=== PATIENT | male | born 1965 | race Caucasian/White ===

== ENCOUNTER 2020-06-18 13:34 | Outpatient (REF) | payer OTHER, SELFPAY ==
--- NOTE | ~2020-06-18 | XR_ITS ---
EXAMINATION: XR CHEST CLINICAL INFORMATION: Chest wall pain COMPARISON: Chest and left RIBS 05/20/2018 TECHNIQUE: 2 views of the chest were obtained. FINDINGS: The lungs are well-expanded and clear of acute pneumonic process. There is blunting of left CP angle from pleural thickening and underlying atelectasis. Heart size and pulmonary vascularity is normal. No gross bony abnormality seen. XR/XR chest 2V IMPRESSION: Left pleural effusion with underlying atelectasis. Rest of the lungs are clear.
[2020-06-18 14:19] LABS: MANUAL DIFF FLAG NO
[2020-06-18 14:25] LABS: Basophils Percent Auto 0.6 % (0-2); Eosinophils Absolute Auto 0.1 X10*3/uL (0.0-0.4); Eosinophils Percent Auto 1.2 % (0-4); Hematocrit 40.5 % (42-52); Hemoglobin 13.5 g/dl (14.0-18.0); Imm Gran Abs Auto 0.02 X10*3/uL (0.00-0.03); Imm Gran Pct Auto 0.3 % (0.0-0.4); Lymphocytes Percent Auto 14.1 % (20-40); Mean Corpuscular HGB Conc 33.3 g/dl (31.0-36.0); Mean Corpuscular Hemoglobin 31.5 pg (27.0-33.0); Mean Corpuscular Volume 94.6 fL (80-98); Mean Platelet Volume 8.9 fL (9.4-12.4); Monocytes Absolute Auto 0.8 X10*3/uL (0.1-1.2); Monocytes Percent Auto 11.7 % (2-11); Neutrophils Absolute Auto 4.9 X10*3/uL (2.0-8.3); Neutrophils Percent Auto 72.1 % (45-73); Platelet Count 200 X10*3/uL (160-400); Red Blood Count 4.28 X10*6/uL (4.60-5.80); Red Cell Distribution Width 13.2 % (11.0-16.0); White Blood Count 6.8 X10*3/uL (4.8-10.8)
[2020-06-18 15:00] LABS: Alanine Aminotransferase 16 U/L (0-40); Albumin Level 4.2 g/dL (3.5-5.0); Alkaline Phosphatase 62 U/L (39-117); Anion Gap 14 (12-20); Aspartate Amino Transferase 14 U/L (5-37); Bilirubin Total 1.2 mg/dL (0.0-1.0); Blood Urea Nitrogen 10 mg/dL (9-16); C Reactive Protein 10.33 mg/dL (< or = 0.50); Calcium 9.1 mg/dL (8.4-10.2); Carbon Dioxide 26 mmol/L (22-29); Chloride 106 mmol/L (96-108); Estimated Glomerular Filt Rate > 60; Glucose Random 82 mg/dL (60-115); Potassium 4.2 mmol/L (3.3-5.1); Sodium 142 mmol/L (135-145); Total Protein 6.6 g/dL (6.5-8.0)
== END 2020-06-18 13:35 | disposition home or self-care (01) ==
LOC: HO.LAB 13:34
PROVIDERS: PCP Internal Medicine; Visit Provider Internal Medicine
DX: R07.89 Other chest pain (principal)
CPT/HCPCS: 36415; 71046; 80053; 82550; 85025; 86140

== ENCOUNTER 2020-06-18 17:33 | Emergency (ER) | payer OTHER, SELFPAY ==
--- NOTE | ~2020-06-18 | CT_ITS ---
EXAMINATION: CT ABDOMEN AND PELVIS WITHOUT CONTRAST CLINICAL INFORMATION: Left upper quadrant pain COMPARISON: 09/09/2015 report only TECHNIQUE: Multidetector volumetric imaging was performed from the superior aspect of the liver through the pubic symphysis. Sagittal and coronal reformatted images were obtained on the technologist's workstation. This CT examination was performed using dose optimization techniques as appropriate, variously including the following: *Automated exposure control *Adjustment of mA and/or kV according to patient size (this includes techniques or standardized protocols for targeted exams where dose is matched to indication/reason for exam; i.e. extremities or head) *Use of iterative reconstruction technique DLP: 652 mGy-cm FINDINGS: LUNG BASES: Patchy consolidations of the left lung with trace effusion and lung parenchymal calcifications suggesting long-term consolidation. LIVER, GALLBLADDER, AND BILIARY TREE: The liver is normal in size, shape, and attenuation. Few scattered liver cysts. Additional tiny hypodensities are too small to characterize but statistically most likely represent additional small cysts. The liver is normal in size, attenuation and Contour otherwise. No biliary ductal dilatation is present. The gallbladder is unremarkable with no evidence of radiopaque gallstones, gallbladder wall thickening, or obvious pericholecystic inflammatory changes. PANCREAS: Unremarkable. SPLEEN: Unremarkable. ADRENAL GLANDS: Unremarkable. KIDNEYS AND URETERS: The kidneys are normal in size, shape, and attenuation. No hydronephrosis, hydroureter, or calculi seen. No perinephric stranding. BLADDER: Unremarkable. GASTROINTESTINAL TRACT: Diverticulosis without CT evidence of diverticulitis. The appendix is unremarkable. No evidence of bowel obstruction. ABDOMINAL WALL: No significant abdominal wall hernia. LYMPH NODES: No lymphadenopathy within the abdomen or pelvis by CT criteria. VASCULAR: No abdominal aortic aneurysm. The IVC is singular and right-sided. PELVIC VISCERA: Unremarkable. OSSEOUS STRUCTURES: No acute or suspicious osseous abnormality. CT/CT abdomen pelvis wo con IMPRESSION: 1. No acute abnormality within the abdomen or pelvis. 2. Diverticulosis without CT evidence of diverticulitis. 3. Chronic appearing consolidation of the left lower lobe adjacent to the trace pleural effusion. There are also patchy airspace opacities of the partially imaged left lung base and inferior most aspect of the lingula. The clinical significance of these patchy opacities is unknown and whether they represent an acute on chronic process should be considered.
[2020-06-18 17:40] VITALS: BP 144/81; PULSE 81; RESP 12; TEMP 35.5; O2SAT 96; BMI 26.2
--- NOTE | 2020-06-18 18:31 | ECG_ITS ---
Test Reason : ABNORMAL LAB Blood Pressure : / mmHG Vent. Rate : 071 BPM Atrial Rate : 071 BPM P-R Int : 156 ms QRS Dur : 094 ms QT Int : 386 ms P-R-T Axes : 053 022 028 degrees QTc Int : 419 ms Normal sinus rhythm Normal ECG No previous ECGs available Referred By: Anna Reis Electronically Signed By:SUGAR ESTRELLA
--- NOTE | 2020-06-18 19:05 | PC.NURSE ---
ASSUMED CARE OF PT. PT RESTING IN STRETCHER JUST RETURNING FROM CT. LABS DRAWN AT THIS TIME. EKG OBTAINED. PT ALERT, RESPIRATIONS EASY, N/L. PT REQUESTING TO GO HOME AFTER PENDING LABS.
[2020-06-18 19:39] LABS: Troponin-I High Sensitivity < 3.5 ng/L (<3.5-35.0)
--- NOTE | 2020-06-18 20:12 | ED.GENADULT ---
HPI - General Adult General Chief complaint: General Medical Stated complaint: Abd Pain Time Seen by Provider: 06/18/20 18:06 Source: patient Mode of arrival: ambulatory Limitations: no limitations History of Present Illness HPI narrative: Patient comes emergency room complaining left-sided chest pain. Patient states it has been going on for 3 days. Patient states it started after a workout at the gym. Patient states throughout the last few days the pain has been getting worse, hurts more in supine position or lying on the left side. Patient does not recall any trauma to that area. Patient states that he does not have chest pain, no shortness of breath. Earlier today, patient was seen by Dr. Gill, his PCP, a chest x-ray was done which seemed abnormal. Patient was asked to come to the emergency room for further evaluation. Patient denies cough, no vomiting or diarrhea, no abdominal pain, no fever chills. Related Data Previous Rx's Medication Instructions Recorded azithromycin 250 mg PO DAILY 4 Days #4 tab 06/18/20 tramadol 50 mg PO TID PRN #10 tab 06/18/20 Allergies Allergy/AdvReac Type Severity Reaction Status Date / Time No Known Allergies Allergy Unverified 10/30/19 14:45 [No Known Allergies*] Review of Systems Review of Systems: Constitutional : No Weight loss, No Fever, No Chills, No Night Sweats, No Fatigue, No Malaise ENT/Mouth : No Hearing loss, No Ear Pain, No Nasal Congestion, No Sinus Pain, No Hoarseness, No sore throat, No Rhinorrhea, No Swallowing Difficulty Eyes: No Eye Pain, No Swelling, No Redness, No Foreign Body, No Discharge, No Vision Changes Cardiovascular : Complaining of left-sided intermittent Chest/flank Pain, No SOB, No Dyspnea on Exertion, No Orthopnea, No Edema, No Palpitations Respiratory : No Cough, No Sputum, No Wheezing, No Smoke Exposure, No Dyspnea Gastrointestinal : No Nausea, No Vomiting, No Diarrhea, No Constipation, mild left upper quadrant discomfort, no dyspepsia, No Hematochezia, No Melena Genitourinary : no irregular bleeding, No Dysuria, No Urinary Frequency, No Hematuria, No Urinary Incontinence, No Urgency, No Flank Pain, No Urinary Flow Changes, No Hesitancy Musculoskeletal : No joint pain, No Myalgias, No Joint Swelling Skin : No Skin Lesions, No rash Neuro : No Weakness, No Numbness, No Paresthesias, No Loss of Consciousness, No Dizziness, No Headache Psych : No Anxiety/Panic, No Depression, No SI/HI/AH/VH, No Social Issues, Heme/Lymph: No Bruising, No Bleeding,No Lymphadenopathy Endocrine : No Polyuria, No Polydipsia, No Temperature Intolerance [facility] Social History Social History Alcohol intake: never Smoking Status: Never smoker Use of substances other than those prescribed or required for medical reasons: No Advance Directives: No Advance Directives Information Provided: Yes Physical Exam Vital Signs: Vital Signs: Last Vital Signs Temp 96 F L 06/18/20 17:40 Pulse 81 06/18/20 17:40 Resp 12 06/18/20 17:40 BP 144/81 H 06/18/20 17:40 Pulse Ox 96 06/18/20 17:40 Body Mass Index 26.2 Appearance: Alert. Oriented X3. No acute distress. Eyes: Pupils equal, round and reactive to light. ENT: Pharynx normal. Neck: Normal inspection. Neck supple. No lymph nodes noted. No crepitus CVS: Normal heart rate and rhythm. Pulses normal. Normal S1 and S2, reproducible chest pain with supine position Respiratory: No respiratory distress. Breath sounds normal. No Wheezing. No rales Abdomen: Soft and nontender. No rigidity. No distention. good BS x4 Skin: Skin warm and dry. Normal skin color. Normal skin turgor. Extremities: No lower extremity edema. No lower extremity edema. No Lacerations. No Rash Neuro: Oriented X 3. No motor deficit. No sensory deficit. Moving all extermities. No slurred speech. Course Course Course Narrative: I discussed the CT scan findings with the patient, I also spoke with Dr. Gill. Patient has a a chronic appearing consolidation of the left lower lobe, also has trace pleural effusion. There are also patchy airspace opacities in the left lung. At this time, patient feels otherwise well, no shortness of breath, oxygen saturation 98% on room air. Patient will be discharged home with antibiotics and pain medication. Patient will follow-up with Dr. Gill on Sunday. Medical Decision Making Lab Data Labs: Lab Results 06/18/20 Range/Units 18:57 Troponin I High Sens < 3.5 (<3.5-35.0) ng/L Imaging Data CT abdomen: Radiologist's impression: FINDINGS: LUNG BASES: Patchy consolidations of the left lung with trace effusion and lung parenchymal calcifications suggesting long-term consolidation. LIVER, GALLBLADDER, AND BILIARY TREE: The liver is normal in size, shape, and attenuation. Few scattered liver cysts. Additional tiny hypodensities are too small to characterize but statistically most likely represent additional small cysts. The liver is normal in size, attenuation and Contour otherwise. No biliary ductal dilatation is present. The gallbladder is unremarkable with no evidence of radiopaque gallstones, gallbladder wall thickening, or obvious pericholecystic inflammatory changes. PANCREAS: Unremarkable. SPLEEN: Unremarkable. ADRENAL GLANDS: Unremarkable. KIDNEYS AND URETERS: The kidneys are normal in size, shape, and attenuation. No hydronephrosis, hydroureter, or calculi seen. No perinephric stranding. BLADDER: Unremarkable. GASTROINTESTINAL TRACT: Diverticulosis without CT evidence of diverticulitis. The appendix is unremarkable. No evidence of bowel obstruction. ABDOMINAL WALL: No significant abdominal wall hernia. LYMPH NODES: No lymphadenopathy within the abdomen or pelvis by CT criteria. VASCULAR: No abdominal aortic aneurysm. The IVC is singular and right-sided. PELVIC VISCERA: Unremarkable. OSSEOUS STRUCTURES: No acute or suspicious osseous abnormality. CT/CT abdomen pelvis wo con IMPRESSION: 1. No acute abnormality within the abdomen or pelvis. 2. Diverticulosis without CT evidence of diverticulitis. 3. Chronic appearing consolidation of the left lower lobe adjacent to the trace pleural effusion. There are also patchy airspace opacities of the partially imaged left lung base and inferior most aspect of the lingula. The clinical significance of these patchy opacities is unknown and whether they represent an acute on chronic process should be considered. ECG Data Attestation: I personally reviewed and interpreted this ECG as follows: (Normal sinus rhythm, heart rate 71, nonspecific ST segment elevation in V5 and V6 less than 1 mm, no reciprocal changes, QTC 419) Discharge Plan Discharge Clinical Impression: Pleural effusion Patient Disposition: Home, Self-Care Instructions: Pleural Effusion (ED) Additional Instructions: Please follow-up with your primary care physician tomorrow. If you have any worsening or new symptoms, please return to the emergency room or call 911 Prescriptions: New azithromycin 250 mg tablet 250 mg PO DAILY 4 Days Qty: 4 RF: 0 tramadol 50 mg tablet 50 mg PO TID PRN (Reason: pain) Qty: 10 RF: 0
[2020-06-18] MEDS: Azithromycin 500 MG TABLET PO (20:27)
== END 2020-06-18 20:30 | disposition home or self-care (01) ==
PROVIDERS: Emergency Provider Emergency Medicine; PCP Internal Medicine
DX: J90 Pleural effusion, not elsewhere classified (principal); R10.12 Left upper quadrant pain
CPT/HCPCS: 36415; 74176; 84484; 93005; 99284

== ENCOUNTER 2020-08-18 14:05 | Outpatient (REF) | payer OTHER, SELFPAY ==
--- NOTE | ~2020-08-18 | XR_ITS ---
EXAMINATION: XR CHEST CLINICAL INFORMATION: Recheck left-sided pleural effusion COMPARISON: Previous chest x-ray most recent June 2020 TECHNIQUE: 2 views of the chest were obtained. FINDINGS: The cardiac and mediastinal contours are normal. The lungs are clear. There is no pleural effusion or pneumothorax. The previously identified small left pleural effusion is no longer seen. Bony structures are unremarkable. XR/XR chest 2V IMPRESSION: Resolved left pleural effusion from June 2020
== END 2020-08-18 14:06 | disposition home or self-care (01) ==
LOC: HO.XRAY 14:05
PROVIDERS: PCP Internal Medicine; Visit Provider Internal Medicine
DX: J90 Pleural effusion, not elsewhere classified (principal)
CPT/HCPCS: 71046

== ENCOUNTER 2021-02-24 15:00 | Outpatient (REF) | payer OTHER, SELFPAY ==
--- NOTE | ~2021-02-24 | XR_ITS ---
EXAMINATION: XR CHEST CLINICAL INFORMATION: History of left effusion COMPARISON: Previous chest x-ray most recent August 2020 TECHNIQUE: 2 views of the chest were obtained. FINDINGS: The cardiac and mediastinal contours are normal. The lungs are clear. There is no pleural effusion or pneumothorax.. Bony structures are normal. XR/XR chest 2V IMPRESSION: Unremarkable examination.
[2021-02-24 15:42] LABS: MANUAL DIFF FLAG NO
[2021-02-24 15:52] LABS: Basophils Percent Auto 0.3 % (0-2); Eosinophils Absolute Auto 0.1 X10*3/uL (0.0-0.4); Eosinophils Percent Auto 0.7 % (0-4); Hematocrit 41.1 % (42.0-52.0); Hemoglobin 13.5 g/dl (14.0-18.0); Imm Gran Abs Auto 0.02 X10*3/uL (0.00-0.03); Imm Gran Pct Auto 0.3 % (0.0-0.4); Lymphocytes Absolute Auto 0.9 X10*3/uL (1.2-4.9); Lymphocytes Percent Auto 12.6 % (20-40); Mean Corpuscular HGB Conc 32.8 g/dl (31.0-36.0); Mean Corpuscular Hemoglobin 30.8 pg (27.0-33.0); Mean Corpuscular Volume 93.6 fL (80.0-98.0); Mean Platelet Volume 8.4 fL (9.4-12.4); Monocytes Absolute Auto 0.9 X10*3/uL (0.1-1.2); Monocytes Percent Auto 12.9 % (2-11); Neutrophils Absolute Auto 5.1 x10*3/uL (2.0-8.3); Neutrophils Percent Auto 73.2 % (45-73); Platelet Count 284 X10*3/uL (160-400); Red Blood Count 4.39 X10*6/uL (4.60-5.80); Red Cell Distribution Width 12.4 % (11.0-16.0)
[2021-02-24 16:01] LABS: COVID-19 Test Positive (Negative)
[2021-02-24 16:15] LABS: Anion Gap 13 (12-20); Blood Urea Nitrogen 11 mg/dL (9-16); C Reactive Protein 6.78 mg/dL (< or = 0.50); Calcium 9.2 mg/dL (8.4-10.2); Carbon Dioxide 28 mmol/L (22-29); Chloride 106 mmol/L (96-108); Cholesterol 193 mg/dL; Estimated Glomerular Filt Rate > 60; Glucose Random 93 mg/dL (60-115); HDL Cholesterol 45 mg/dL; LDL Cholesterol Calculated 131 mg/dl; Potassium 4.5 mmol/L (3.3-5.1); Sodium 142 mmol/L (135-145); Triglycerides 87 mg/dL; Uric Acid 6.4 mg/dL (3.4-7.0)
[2021-02-24 16:36] LABS: Free T4 (Free Thyroxine) 0.82 ng/dL (0.71-1.85); PSA,Total (Free>4and<10) 3.43 ng/mL (0.00-4.00); Thyroid Stimulating Hormone 1.34 uIU/mL (0.32-4.0)
[2021-02-24 16:39] LABS: Vitamin B12 230 pg/mL (200-900)
[2021-02-24 16:49] LABS: Appearance Urine CLEAR; Color Urine YELLOW; Glucose Urine UA NEG (NEG); Leukocyte Esterase Urine NEG (NEG); Nitrite Urine NEG (NEG); PH 5.5 (5.0-8.0); Specific Gravity - Urine >= 1.030 (1.005-1.025); Urine Blood NEG (NEG); Urine Ketones NEG (NEG); Urine Protein NEG (NEG-TRACE)
== END 2021-02-24 15:01 | disposition home or self-care (01) ==
LOC: HO.XRAY 15:00
PROVIDERS: PCP Internal Medicine; Visit Provider Internal Medicine
DX: Z00.00 Encounter for general adult medical examination without abnormal findings (principal); Z12.5 Encounter for screening for malignant neoplasm of prostate; Z20.822 Contact with and (suspected) exposure to COVID-19; K21.9 Gastro-esophageal reflux disease without esophagitis; M10.9 Gout, unspecified; Z87.09 Personal history of other diseases of the respiratory system
CPT/HCPCS: 36415; 71046; 80048; 80061; 81003; 82550; 82607; 84153; 84439; 84443; 84550; 85025; 86140; 87635

== ENCOUNTER 2021-03-23 14:10 | Outpatient (REF) | payer OTHER, SELFPAY ==
[2021-03-23 14:43] LABS: MANUAL DIFF FLAG NO
[2021-03-23 14:54] LABS: Basophils Percent Auto 0.5 % (0-2); Eosinophils Absolute Auto 0.1 X10*3/uL (0.0-0.4); Eosinophils Percent Auto 1.3 % (0-4); Hematocrit 40.7 % (42.0-52.0); Hemoglobin 13.4 g/dl (14.0-18.0); Imm Gran Abs Auto 0.03 X10*3/uL (0.00-0.03); Imm Gran Pct Auto 0.4 % (0.0-0.4); Lymphocytes Absolute Auto 1.2 X10*3/uL (1.2-4.9); Mean Corpuscular HGB Conc 32.9 g/dl (31.0-36.0); Mean Corpuscular Hemoglobin 30.4 pg (27.0-33.0); Mean Corpuscular Volume 92.3 fL (80.0-98.0); Mean Platelet Volume 8.2 fL (9.4-12.4); Monocytes Absolute Auto 0.8 X10*3/uL (0.1-1.2); Monocytes Percent Auto 10.1 % (2-11); Neutrophils Absolute Auto 6.1 x10*3/uL (2.0-8.3); Neutrophils Percent Auto 73.7 % (45-73); Platelet Count 275 X10*3/uL (160-400); Red Blood Count 4.41 X10*6/uL (4.60-5.80); Red Cell Distribution Width 13.2 % (11.0-16.0); White Blood Count 8.3 X10*3/uL (4.8-10.8)
[2021-03-23 15:22] LABS: Anion Gap 13 (12-20); Blood Urea Nitrogen 15 mg/dL (9-16); C Reactive Protein 4.32 mg/dL (< or = 0.50); Calcium 9.6 mg/dL (8.4-10.2); Carbon Dioxide 29 mmol/L (22-29); Chloride 105 mmol/L (96-108); Estimated Glomerular Filt Rate > 60; Glucose Random 103 mg/dL (60-115); Potassium 4.5 mmol/L (3.3-5.1); Sodium 142 mmol/L (135-145)
[2021-03-23 15:35] LABS: Erythrocyte Sedimentation Rate 53 MM/HR (0-15)
[2021-03-25 08:56] LABS: Lyme Abs Screen <0.90 index
== END 2021-03-23 14:11 | disposition home or self-care (01) ==
LOC: HO.LAB 14:10
PROVIDERS: PCP Internal Medicine; Visit Provider Internal Medicine
DX: M79.10 Myalgia, unspecified site (principal); K21.9 Gastro-esophageal reflux disease without esophagitis
CPT/HCPCS: 36415; 80048; 85025; 85652; 86140; 86617; 86618

== ENCOUNTER → 2021-07-13 13:57 | Outpatient (BNVA) | payer OTHER, SELFPAY | PROVIDERS: PCP Internal Medicine; Referring Provider Internal Medicine; Visit Provider Physician Assistant | DX: Z13.89 Encounter for screening for other disorder (principal) ==

== ENCOUNTER 2021-10-25 11:35 | Emergency (ER) | payer OTHER, SELFPAY ==
--- NOTE | ~2021-10-25 | CT_ITS ---
EXAMINATION: CT ABDOMEN AND PELVIS WITH CONTRAST CLINICAL INFORMATION: Left lower quadrant pain COMPARISON: CT abdomen pelvis 06/18/2020 TECHNIQUE: Multidetector volumetric images were obtained from the superior aspect of the liver through the pubic symphysis following administration 85 mL of Omnipaque 350 intravenous contrast. Sagittal and coronal reformatted images were obtained on the technologist's workstation. This CT examination was performed using dose optimization techniques as appropriate, variously including the following: *Automated exposure control *Adjustment of mA and/or kV according to patient size (this includes techniques or standardized protocols for targeted exams where dose is matched to indication/reason for exam; i.e. extremities or head) *Use of iterative reconstruction technique DLP: 675 mGy-cm FINDINGS: Visualized lung bases demonstrate minimal dependent atelectasis. The liver is normal in size. Several small hypodense hepatic lesions are again noted, some of which demonstrate cystic characteristics while others are inaccurately characterized. The gallbladder is normal in appearance. The pancreas, spleen and adrenal glands are unremarkable. Symmetrically enhancing kidneys. No hydronephrosis bilaterally. The stomach is decompressed. Normal caliber loops of small and large bowel. Colonic diverticulosis again demonstrated. There is an area of circumferential mucosal thickening at the junction of the descending and sigmoid colon with adjacent pericolonic stranding suggesting a short segment of active diverticulitis. Normal appendix. Normal caliber abdominal aorta. No retroperitoneal lymphadenopathy. The bladder is decompressed and therefore not accurately evaluated, however, there appears to be mild diffuse bladder wall thickening. The prostate gland is at the upper limits of normal in size. Small fat-containing inguinal hernias are noted. No inguinal lymphadenopathy. No gross free pelvic fluid. Mild degenerative changes of the spine. CT/CT abdomen pelvis w IV con IMPRESSION: Active diverticulitis at the junction of the descending and sigmoid colon. No complicating abscess. Fleischner guidelines were followed.
[2021-10-25 13:32] VITALS: BP 162/94; PULSE 84; RESP 18; TEMP 36.6; O2SAT 99; BMI 26.4
--- NOTE | 2021-10-25 13:35 | ECG_ITS ---
Test Reason : ABDOMINAL PAIN Blood Pressure : / mmHG Vent. Rate : 072 BPM Atrial Rate : 072 BPM P-R Int : 142 ms QRS Dur : 082 ms QT Int : 376 ms P-R-T Axes : 051 025 043 degrees QTc Int : 411 ms Normal sinus rhythm Normal ECG When compared with ECG of 18-JUN-2020 19:08, No significant change was found Referred By: Generic ED Physician Electronically Signed By:AGUILAR ARAUJO
[2021-10-25 13:56] LABS: MANUAL DIFF FLAG NO
[2021-10-25 14:17] LABS: Anion Gap 16 (12-20); Blood Urea Nitrogen 11 mg/dL (9-16); Calcium 9.4 mg/dL (8.4-10.2); Carbon Dioxide 27 mmol/L (22-29); Chloride 103 mmol/L (96-108); Creatinine Clr Calc Pharmacy 106.4; Estimated Glomerular Filt Rate > 60; Glucose Random 91 mg/dL (60-115); Potassium 3.9 mmol/L (3.3-5.1); Sodium 142 mmol/L (135-145)
[2021-10-25 14:18] LABS: Basophils Absolute Auto 0.1 X10*3/uL (0.0-0.2); Basophils Percent Auto 0.5 % (0-2); Eosinophils Percent Auto 0.3 % (0-4); Hematocrit 44.6 % (42.0-52.0); Hemoglobin 14.8 g/dl (14.0-18.0); Imm Gran Abs Auto 0.04 X10*3/uL (0.00-0.03); Imm Gran Pct Auto 0.3 % (0.0-0.4); Lymphocytes Absolute Auto 1.3 X10*3/uL (1.2-4.9); Lymphocytes Percent Auto 11.2 % (20-40); Mean Corpuscular HGB Conc 33.2 g/dl (31.0-36.0); Mean Corpuscular Hemoglobin 31.5 pg (27.0-33.0); Mean Corpuscular Volume 94.9 fL (80.0-98.0); Mean Platelet Volume 8.5 fL (9.4-12.4); Monocytes Absolute Auto 1.1 X10*3/uL (0.1-1.2); Monocytes Percent Auto 9.3 % (2-11); Neutrophils Absolute Auto 9.4 x10*3/uL (2.0-8.3); Neutrophils Percent Auto 78.4 % (45-73); Platelet Count 223 X10*3/uL (160-400); Red Cell Distribution Width 12.6 % (11.0-16.0)
[2021-10-25 18:40] VITALS: TEMP 37.1
[2021-10-25] MEDS: Acetaminophen 325 MG TABLET 975 MG PO (18:46)
--- NOTE | 2021-10-25 19:16 | ED_ITS ---
HPI - Abdominal Pain General Chief Complaint: Abdominal Pain Stated Complaint: L side abd pain sent by Time Seen by Provider: 10/25/21 18:51 Source: patient Mode of arrival: ambulatory Limitations: no limitations History of Present Illness HPI narrative: This is a 56-year-old male past medical history significant for polymyalgia rheumatica, dysphagia, acid reflux, presenting to the emergency after being told to come in by his primary care provider who is concerned that patient is complaining of loose stools, left-sided abdominal pain. Patient tells me that he has been having left-sided abdominal pain for the past 24 hours. He has also noted some red blood in his stool. He has also had nausea, diarrhea, chills, and shortness of breath secondary to the pain. He has not been able to tolerate PO intake today due to the pain. He denies any known fevers but states that he has been feeling warm. He denies dysuria, headaches, dizziness, or other complaints at this time. Of note, he tells me that the last time he had an episode of diverticulitis was in 2015, he was treated with antibiotics at that time. MD elicited complaint: abdominal pain Related Data Home Medications Medication Instructions Recorded Confirmed omeprazole 20 mg capsule,delayed 20 mg PO DAILY 07/13/21 07/13/21 release prednisolone sodium phosphate 10 10 mg PO DAILY 07/13/21 07/13/21 mg disintegrating tablet Previous Rx's Medication Instructions Recorded tramadol 50 mg tablet 50 mg PO TID PRN pain #10 tabs 06/18/20 bisacodyl 5 mg tablet,delayed 10 mg PO ONCE colonoscopy prep 1 07/13/21 release (Dulcolax (bisacodyl)) day #2 tabs omeprazole 20 mg capsule,delayed 20 mg PO BID 30 days #60 caps 07/13/21 release polyethylene glycol 3350 17 238 g PO ONCE 1 day #238 grams 07/13/21 gram/dose oral powder (Miralax) levofloxacin 750 mg tablet 750 mg PO DAILY 7 days #7 tabs 10/25/21 metronidazole 500 mg tablet 500 mg PO BID 7 days #14 tabs 10/25/21 morphine 15 mg immediate release 15 mg PO BID PRN pain #6 tabs 10/25/21 tablet ondansetron 4 mg disintegrating 4 mg PO Q6H PRN nausea and 10/25/21 tablet vomiting #14 tabs Allergies Allergy/AdvReac Type Severity Reaction Status Date / Time No Known Allergies Allergy Verified 07/13/21 13:58 [No Known Allergies*] Review of Systems Review of Systems Constitutional : No Weight loss, No Fever, No Chills, No Fatigue, No Malaise ENT/Mouth : No sore throat, No Rhinorrhea Eyes: No Eye Pain, No Swelling, No Redness Cardiovascular : No Chest Pain, No SOB, No Dyspnea on Exertion, No Orthopnea, No Edema, No Palpitations Respiratory : No Cough, No Sputum, No Wheezing Gastrointestinal : + Nausea, No Vomiting, + Diarrhea, No Constipation, + abdominal Pain, + Hematochezia, No Melena Genitourinary : No Dysuria, No Urinary Frequency, No Hematuria, Musculoskeletal : No joint pain, No Myalgias, No Joint Swelling Skin : No Skin Lesions, No rash Neuro : No Weakness, No Numbness, No Dizziness, No Headache Psych : No Anxiety/Panic, No Depression All other systems reviewed and are negative Yes all other systems are reviewed and are negative [facility] Past Medical History Attestation statement: The following information was validated with the patient. Source: old records reviewed and nursing notes reviewed Surgical History History of back surgery Hx of colonoscopy Hx of left knee surgery Hx of right knee surgery Family History Family History Father Pancreatic cancer Mother Lung cancer Social History Social History Household Members: None Alcohol intake: current Alcohol intake frequency: holidays/special occasions only Patient Tobacco Use Status: Never used Tobacco Advance Directives: No Physical Exam ED Vital Signs: Vital Signs - 24 hr 10/25/21 13:32 10/25/21 18:40 Temperature 98 F 98.8 F Pulse Rate 84 Respiratory Rate 18 Blood Pressure 162/94 H Pulse Oximetry 99 Oxygen Delivery Method Room Air BMI result Body Mass Index 26.4 vss Appearance: Alert.? Oriented X3.? No acute distress.? Head: Normocephalic, atraumatic, no step-offs or deformities Eyes: Pupils equal, round and reactive to light.? Neck: Normal inspection.? Neck supple.? CVS: Normal heart rate and rhythm.? Pulses normal.? Respiratory: No respiratory distress.? Breath sounds normal.? Abdomen: Soft. +BS. Localized tenderness in the left lower quadrant, remainder of abdomen is nontender. Negative Madden's, Mcburneys, Rosving sign. Skin: Skin warm and dry.? Normal skin color.? Normal skin turgor.? Extremities: No lower extremity edema.? No calf ttp. 5/5 strength to bilateral upper and lower extremities Neuro: Oriented X 3.? No motor deficit.? No sensory deficit. CN 2-12 intact Course Reevaluation(s) Reevaluation #1: CBC with slight leukocytosis, chemistry with no acute electrolyte abnormalities requiring intervention. Urine clean. COVID negative. CT pending. Time: 19:17 Reevaluation #2: CT shows active diverticulitis at the junction of the descending and sigmoid colon. No complicating abscess. Patient will be given Levoquin, Flagyl, and PO challenge will be done. ? Time: 21:35 Reevaluation #3: Patient tollerating PO, no need for inpatient hospital admission at this time.. Advised to return with new or worsening symptoms and when to return, outlined these on his discharge. I did educate patient on the fluoroquinolone black box warning of tendon rupture, advised him to return if this issue arises, he verbalizes understanding. I told him to refrain from physical activity for 2 weeks or until medically cleared. Comfortable with discharge. Time: 21:55 MDM - Abdominal Pain [facility] Narrative Medical decision making narrative: 191 56-year-old male presents with left lower quadrant abdominal pain since yesterday. Hx of diverticulitis in 2016. Physical examination with left lower quadrant pain to palpation. Normoactive bowel sounds. Abdomen appears normal in size, no distension. Regular rate and rhythm. Lungs clear. Neuro nonfocal. Patient appears comfortable no acute distress. Vital signs stable. Concerns for diverticulitis versus diverticulosis. Low suspicion for bowel obstruction. Unlikely that this is appendicitis, cholecystitis, no signs of acute abdomen on exam. Plan at this time is basic labs, urine, CT of the abdomen and pelvis with contrast. Medical Records Attestation: I reviewed the patient's medical records. Lab Data Attestation: I reviewed the patient's lab results. Result diagrams: 10/25/21 13:51 10/25/21 13:51 Labs: Lab Results 10/25/21 10/25/21 Range/Units 13:51 13:51 WBC 12.0 H (4.8-10.8) X10*3/uL RBC 4.70 (4.60-5.80) X10*6/uL Hgb 14.8 (14.0-18.0) g/dl Hct 44.6 (42.0-52.0) % MCV 94.9 (80.0-98.0) fL MCH 31.5 (27.0-33.0) pg MCHC 33.2 (31.0-36.0) g/dl RDW 12.6 (11.0-16.0) % Plt Count 223 (160-400) X10*3/uL MPV 8.5 L (9.4-12.4) fL Immature Gran % (Auto) 0.3 (0.0-0.4) % Neut % (Auto) 78.4 H (45-73) % Lymph % (Auto) 11.2 L (20-40) % Bowman % (Auto) 9.3 (2-11) % Eos % (Auto) 0.3 (0-4) % Baso % (Auto) 0.5 (0-2) % Lymph # (Auto) 1.3 (1.2-4.9) X10*3/uL Bowman # (Auto) 1.1 (0.1-1.2) X10*3/uL Eos # (Auto) 0.0 (0.0-0.4) X10*3/uL Baso # (Auto) 0.1 (0.0-0.2) X10*3/uL Abs Immat Gran (auto) 0.04 H (0.00-0.03) X10*3/uL Absolute Neuts (auto) 9.4 H (2.0-8.3) x10*3/uL Absolute Nucleated RBC 0.000 (0.0-0.012) X10*3/uL Nucleated RBC % (auto) 0.0 (0.0-0.2) /100WBC Sodium 142 (135-145) mmol/L Potassium 3.9 (3.3-5.1) mmol/L Chloride 103 (96-108) mmol/L Carbon Dioxide 27 (22-29) mmol/L Anion Gap 16 (12-20) BUN 11 (9-16) mg/dL Creatinine 0.84 (0.5-1.4) mg/dL Estim Creat Clear Calc 106.4 Estimated GFR > 60 Random Glucose 91 (60-115) mg/dL Calcium 9.4 (8.4-10.2) mg/dL Total Bilirubin 0.9 (0.0-1.0) mg/dL Direct Bilirubin 0.3 (0.0-0.5) mg/dL AST 14 (5-37) U/L ALT 18 (0-40) U/L Alkaline Phosphatase 69 (39-117) U/L Total Protein 7.2 (6.5-8.0) g/dL Albumin 4.5 (3.5-5.0) g/dL Lipase 29 (8-78) U/L Critical Care Time Critical Care Time Critical Care Time: No Discharge Plan Discharge Clinical Impression: Diverticulitis Patient Disposition: Home, Self-Care Additional Instructions: Take your medications as prescribed. If you were prescribed antibiotics today, it is important that you take your medication to their entirety, do not skip any doses, do not finish them early. Follow-up with your primary care provider this week. Return to the emergency department with new or worsening symptoms. Such as fevers, chills, chest pain, shortness of breath, nausea, vomiting, dizziness, headache, vision changes, lethargy In case of emergency call 911 Zofran is an antinausea medication that has been sent to your pharmacy. Please only take this as prescribed, taking more than the prescribed dose slightly to cardiac abnormalities. Morphine has been sent to your pharmacy, please use this only for severe pain, it can cause dependence, please do not take this while driving or operating machinery. This is considered a controlled substance and is a narcotic. For [id number] pain you can take ibuprofen every 6 hours, Tylenol every 4 as needed for pain or discomfort. I recommend you have a liquid diet for few days then transition to a soft diet. Prescriptions: New metronidazole 500 mg tablet 500 mg PO BID 7 Days Qty: 14 0RF levofloxacin 750 mg tablet 750 mg PO DAILY 7 Days Qty: 7 0RF ondansetron 4 mg tablet,disintegrating 4 mg PO Q6H PRN (Reason: nausea and vomiting) Qty: 14 0RF morphine 15 mg tablet 15 mg PO BID PRN (Reason: pain) Qty: 6 0RF Rx Instructions: Partial Fill upon patient request. No Action tramadol 50 mg tablet 50 mg PO TID PRN (Reason: pain) Qty: 10 0RF prednisolone sodium phosphate 10 mg tablet,disintegrating 10 mg PO DAILY omeprazole 20 mg capsule,delayed release(DR/EC) 20 mg PO DAILY bisacodyl [Dulcolax (bisacodyl)] 5 mg tablet,delayed release (DR/EC) 10 mg PO ONCE 1 Days Qty: 2 0RF Rx Instructions: Take 2 tablets by mouth at 12:00pm the day before your procedure. polyethylene glycol 3350 [Miralax] 17 gram/dose powder 238 g PO ONCE 1 Days Qty: 238 0RF Rx Instructions: Take as directed by mouth the day before your procedure. omeprazole 20 mg capsule,delayed release(DR/EC) 20 mg PO BID 30 Days Qty: 60 6RF Referrals: Aron Gill MD [Primary Care Provider] - 2 days Stand Alone Forms: Work/School Release
[2021-10-25 19:20] LABS: Alanine Aminotransferase 18 U/L (0-40); Albumin Level 4.5 g/dL (3.5-5.0); Alkaline Phosphatase 69 U/L (39-117); Aspartate Amino Transferase 14 U/L (5-37); Bilirubin Direct 0.3 mg/dL (0.0-0.5); Bilirubin Total 0.9 mg/dL (0.0-1.0); Lipase 29 U/L (8-78); Total Protein 7.2 g/dL (6.5-8.0)
[2021-10-25] MEDS: ondansetron HCL 4 MG/2 ML VIAL IVPUSH (19:45)
[2021-10-25] MEDS: Ketorolac Tromethamine 15 MG/ML VIAL IVPUSH ×2 (19:45→21:43)
[2021-10-25] MEDS: 0.9 % Sodium Chloride 1,000 ML 999 ML IV (19:47)
[2021-10-25] MEDS: iohexoL 350 MG/ML 100 ML INFUS..BTL IV (20:06)
[2021-10-25] MEDS: levoFLOXacin 750 MG TABLET PO (21:43)
[2021-10-25] MEDS: metroNIDAZOLE 500 MG TABLET PO (21:43)
== END 2021-10-25 22:18 | disposition home or self-care (01) ==
PROVIDERS: Physician Assistant; Emergency Provider Student in an Organized Health Care Education/Training Program; PCP Internal Medicine
DX: K57.32 Diverticulitis of large intestine without perforation or abscess without bleeding (principal); R10.9 Unspecified abdominal pain; K21.9 Gastro-esophageal reflux disease without esophagitis; Z79.899 Other long term (current) drug therapy
CPT/HCPCS: 36415; 74177; 80048; 80076; 83690; 85025; 93005; 96361; 96374; 96375; 96376; 99283; 99284; J1885; J2405; Q9967

== ENCOUNTER 2021-11-30 07:32 | Day surgery (SDC) | payer OTHER, SELFPAY ==
--- NOTE | 2021-11-29 10:57 | HO.ANESPROP2 ---
Documented by User: Caridad Do NP 11/29/21 10:58 HPI - Anesthesia Eval Consult details Narrative: 56yo M for Upper Endoscopy and Colonoscopy Prednisone daily for PMR PMFSH Active Problems Active Problems: All Active Problems (Updated 11/24/21 @ 12:47 by Aurea Aviles RN) PMR (polymyalgia rheumatica) (Acute) Dysphagia (Acute) History of colon polyps (Acute) Acid reflux (Acute) Past Medical History Medical History Acid reflux Dysphagia Polymyalgia rheumatica Family History Family History Father Pancreatic cancer Mother Lung cancer Surgical History Surgical History History of back surgery History of esophagogastroduodenoscopy (EGD) Hx of colonoscopy Hx of left knee surgery Hx of right knee surgery Social History Social History Household Members: None Alcohol intake: current Alcohol intake frequency: holidays/special occasions only Patient Tobacco Use Status: Never used Tobacco Use of substances other than those prescribed or required for medical reasons: No Are you DNR?: No Advance Directives: No Advance Directives Information Provided: Yes Meds Allergies Allergy/AdvReac Type Severity Reaction Status Date / Time No Known Allergies Allergy Verified 11/24/21 12:41 [No Known Allergies*] Home Medications Medication Instructions Recorded Confirmed Last Taken Type prednisolone sodium phosphate 10 10 mg PO DAILY 07/13/21 07/13/21 Unknown History mg disintegrating tablet prednisone 1 mg tablet 4 tab PO BID 11/24/21 11/24/21 Unknown History Exam Exam Date and Time: November 29, 2021 1057 Pertinent Lab Results Pertinent Lab Results: Laboratory Tests 10/25/21 10/25/21 13:51 13:51 WBC 12.0 H Hgb 14.8 Hct 44.6 Plt Count 223 Sodium 142 Potassium 3.9 Chloride 103 Carbon Dioxide 27 BUN 11 Creatinine 0.84 Narrative Narrative: EKG 10/2021 Vent. Rate : 072 BPM ? ? Atrial Rate : 072 BPM ?? P-R Int : 142 ms? QRS Dur : 082 ms ? ? QT Int : 376 ms ? ? ? P-R-T Axes : 051 025 043 degrees ?? QTc Int : 411 ms ? Normal sinus rhythm Normal ECG When compared with ECG of 18-JUN-2020 19:08, No significant change was found Assessment and Plan Assessment Anesthesia Assessment: Chart Reviewed Documented by User: Marine Chris MD 11/30/21 08:55 PMFSH Past Medical History Medical History Acid reflux Dysphagia Polymyalgia rheumatica Functional capacity: independent ambulation Family History Family History Father Pancreatic cancer Mother Lung cancer Surgical History Surgical History History of back surgery History of esophagogastroduodenoscopy (EGD) Hx of colonoscopy Hx of left knee surgery Hx of right knee surgery History of Problems with Anesthesia: No Social History Social History Household Members: None Alcohol intake: current Alcohol intake frequency: holidays/special occasions only Patient Tobacco Use Status: Never used Tobacco Use of substances other than those prescribed or required for medical reasons: No Are you DNR?: No Advance Directives: No Advance Directives Information Provided: Yes Meds Allergies Allergy/AdvReac Type Severity Reaction Status Date / Time No Known Allergies Allergy Verified 11/24/21 12:41 [No Known Allergies*] Home Medications Medication Instructions Recorded Confirmed Last Taken Type prednisolone sodium phosphate 10 10 mg PO DAILY 07/13/21 07/13/21 Unknown History mg disintegrating tablet prednisone 1 mg tablet 4 tab PO BID 11/24/21 11/24/21 Unknown History Exam Airway Mallampati Class: II TM Dist: >3cm Neck ROM: Full Heart: RRR Lungs: CTA Assessment and Plan Final Anesthetic Review History of Problems with Anesthesia: No ASA Class: II Final Preanesthetic Review: No Changes in Pt Med Stat, Meds/Allgs Chart Reviewed, Consent Obtained/Reviewed and Anes Risks/Benef Reviewed Patient Risk: Low (H) Procedure Risk: Low Anesthetic Plan Anesthetic Plan: MAC: Disposition: Standard PACU
[2021-11-30 07:47] VITALS: BMI 26.2
[2021-11-30 07:53] VITALS: BP 142/85; PULSE 91; RESP 18; TEMP 36.1; O2SAT 97
[2021-11-30 08:07] VITALS: BMI 26.2
[2021-11-30] MEDS: Lactated Ringers 1,000 ML 100 ML IVCONT (08:09)
--- NOTE | 2021-11-30 08:35 | P.HPSUR_ITS ---
Pre-Procedural Eval Section A Date of Service: 11/30/21 Section B Chief Complaint: hx of polyps Relevant Social History: None Present Medications: see Short Stay Collaborative assessment Medical History: Significant History (Acid reflux Dysphagia Polymyalgia rheumatica) History of Previous Operations: Relevant previous surgery/procedure and date(s) (History of back surgery History of esophagogastroduodenoscopy (EGD) Hx of colonoscopy Hx of left knee surgery Hx of right knee surgery) Allergies: Allergies Allergy/AdvReac Type Severity Reaction Status Date / Time No Known Allergies Allergy Verified 11/24/21 12:41 [No Known Allergies*] Review of Systems Sugical H&P ROS: Negative: Constitution, Cardiovascular, Respiratory, Neurological, Psychiatric, Hem-Onc, Allergic/Immunologic, Gastrointestinal, Genitourinary, Musculoskeletal, Integumentary, Endocrine and Eyes/Ears/No se/Throat Exam Surgical H&P Exam: Normal: HEENT, Normal: Heart, Normal: Lungs, Normal: Extremities, Normal: Abdomen, Normal: Skin and Normal: Neurological Plan Diagnosis/Plan: Unchanged I have reviewed the history and physical and performed a pertinent physical examination on my patient. No changes have occurred unless specified.
--- NOTE | 2021-11-30 09:06 | P.OP_ITS ---
Operative Note Operative Note Date of Service: 11/30/21 Narrative: Operative Information Procedure Description: Colonoscopy Indication: hx of polyps Anesthesia: MAC COLONOSCOPY Instrument: Olympus variable stiffness pediatric scope 190L Colonoscopy Monitoring: Vital signs and clinical assessment, continuous EKG monitoring, Pulse oximetry, Carbon Dioxide monitoring and blood pressure monitoring were done throughout the procedure. Colon withdrawal time was 14 minutes. Procedure: The patient was placed in the left lateral decubitis position and pre-procedure medications were administered. After a digital rectal examination of the ano-rectum, the video colonoscope was inserted into the rectum and advanced through the colon to the cecum/TI. The colonoscope was slowly withdrawn in a retrograde panoramic fashion and the colon mucosa was carefully examined including a retroflexed view of the rectum. Findings and interventions are described below. Procedure Difficulty: easy Findings: Terminal Ileum-normal Cecum: x 3 sessile polyps 6-8 mm removed with biopsy forceps Ascending Colon: normal Transverse Colon - 10-11 mm sessile polyp removed with cold snare Descending Colon:normal Sigmoid Colon: moderate diverticulosis, 11-13 mm sessile polyp removed with co ld snare Rectum: Retroflexion with small internal hemorrhoids, grade I, 12-14 mm sessile polyp removed from distal rectum, x1 clip applied for hemostasis. Anorectum - normal Colon preparation: [place] Bowel Preparation Scale Right colon; 2 Transverse colon: 2 Left colon; 2 (0 = Unprepared colon segment with mucosa not seen due to solid stool that cannot be cleared. 1 = Portion of mucosa of the colon segment seen, but other areas of the colon segment not well seen due to staining, residual stool and/or opaque liquid. 2 = Minor amount of residual staining, small fragments of stool and/or opaque liquid, but mucosa of colon segment seen well. 3 = Entire mucosa of colon segment seen well with no residual staining, small fragments of stool or opaque liquid) Impression and Post Procedure Diagnosis: polyps internal hemorrhoids diverticular disease Plan: High fiber diet leaflet Avoid straining at stool, epsom salts and sitz bath, anusol supps or cream Repeat Colonoscopy in 1-2 years or earlier if clinically indicated Above findings were reviewed with the patient and relevant handouts were provided if indicated.
[2021-11-30 09:13] VITALS: BP 131/81; PULSE 73; RESP 16; TEMP 36.4; O2SAT 73
[2021-11-30 09:28] VITALS: BP 155/93; PULSE 63; RESP 16; TEMP 36.5; O2SAT 99
--- NOTE | 2021-11-30 09:35 | HO.POSTANES ---
Post Anesthesia Evaluation Post Anesthesia Evaluation Vital Signs: Vital Signs Temp Pulse Resp BP Pulse Ox O2 Del Method 11/30/21 09:28 97.7 F 63 16 155/93 H 99 Room Air 11/30/21 09:13 97.5 F 73 16 131/81 73 L Room Air 11/30/21 07:53 96.9 F 91 18 142/85 H 97 Room Air Anesthesia: Monitored Mental Status: Awake Pain Control: Satisfactory Nausea/Vomiting: None Hydration: Adequate Anesthesia-Related Issues: No Anes. Related Issues
== END 2021-11-30 10:11 | disposition home or self-care (01) ==
PROVIDERS: PCP Internal Medicine; Visit Provider Internal Medicine Gastroenterology
PROC: (CPT 45385; principal; 2021-11-30 08:30)
DX: Z12.11 Encounter for screening for malignant neoplasm of colon (principal); Z86.010 Personal history of colon polyps; D12.0 Benign neoplasm of cecum; D12.3 Benign neoplasm of transverse colon; D12.5 Benign neoplasm of sigmoid colon; D12.8 Benign neoplasm of rectum; K57.30 Diverticulosis of large intestine without perforation or abscess without bleeding; K64.0 First degree hemorrhoids; K21.9 Gastro-esophageal reflux disease without esophagitis; R13.10 Dysphagia, unspecified; Z79.899 Other long term (current) drug therapy
CPT/HCPCS: 45385; 45380; 88305

== ENCOUNTER 2023-02-26 14:34 | Outpatient (REF) | payer OTHER, SELFPAY ==
[2023-02-26 15:29] LABS: Influenza A PCR NEGATIVE (Negative); Influenza B PCR NEGATIVE (Negative); Resp Syncy Virus RNA Qual PCR NEGATIVE (Negative); SARS COV2 PCR INHOUSE NEGATIVE (Negative)
== END 2023-02-26 14:35 | disposition home or self-care (01) ==
LOC: HO.LNP 14:34
PROVIDERS: Visit Provider Internal Medicine
DX: Z11.52 Encounter for screening for COVID-19 (principal); Z20.822 Contact with and (suspected) exposure to COVID-19; R51.9 Headache, unspecified; R05.9 Cough, unspecified
CPT/HCPCS: 0241U

== ENCOUNTER → 2024-07-14 16:47 | Outpatient (AMB) | payer OTHER, SELFPAY ==
--- NOTE | 2024-07-14 16:46 | A.OFFPC_ITS ---
Vital Signs 07/14/24 16:50 Height 6 ft Weight 87.997 kg BMI 26.3 Respiration 14 Pulse 81 Pulse Source Pulse Oximeter Temp 97.9 F Temp Source Temporal Artery Scan Pulse Oximetry (%) 98 Oxygen Delivery Method Room Air Intake Visit Reasons: Annual - see comments Pattern Finisher Required: No Accompanied by: Self / Same As Patient Allergies No Known Allergies [No Known Allergies*] Allergy (Verified 07/14/24 16:50) HPI HPI Comments History of Present Illness Details 59-year-old male with history of GERD, t ubular adenoma x4, polymyalgia rheumatica presents to the office today for annual physical exam and for management of chronic conditions. He is exercising regularly and follows a healthy diet. GERD-continues on omeprazole 20 mg b.i.d.. Avoid triggering food items. S/p balloon dilation 2015 due to esophageal stricture, no recurrence Polymyalgia rheumatica-following adverse reaction to COVID-19 vaccine. Following with arthritis treatment center. He was on chronic prednisone for 2 years. Now maintained on Kevzara with good effect Chronic low back pain with bilateral lower extremity radiculopathy-following with [facility] spine and sports. Will be undergoing cortisone injection. No alarm symptoms Recent MRI: Degenerative and postoperative changes of the lumbar spine superimposed upon a congenitally-narrowed spinal canal. At L3-L4, a concentric disc-osteophyte complex asymmetric to the left moderate- severely narrows the left side of the spinal canal with expected compression of the left L4 nerve roots. At L4-L5, a left laminotomy defect is present. The left L4-L5 subarticular recess is severely narrowed with compression of the left L5 nerve roots. Probable BPH with LUTS- reports symptoms of incomplete bladder emptying, some nocturia. However, not overly bothered by symptoms. Health maintenance: Overdue for colonoscopy Due for PSA Recommend annual eye exams Social history: Alcohol use-reports drinking 4-5 beers about 3 times weekly No cigarette smoking or history of cigarette smoking No illicit drug use or marijuana use ROS: General: No fevers, malaise, unintentional weight loss HEENT: No blurred vision, diplopia. No sore throat, nasal congestion, r hinorrhea, sinus pain, ear pain Neck: no adenopathy Cardiovascular: No chest pain, palpitations, or leg edema Respiratory: No shortness of breath, wheezing, cough GI: No abdominal pain, nausea, vomiting, diarrhea, constipation, melena, hematochezia : No dysuria, hematuria. See HPI Lymph: no adenopathy MSK: No myalgia, back pain Neuro: No headaches, weakness, paresthesias Psych: no deppression, anxiety. No SI/HI Skin: No rashes or lesions EXAM: Constitutional - Awake and Alert, No apparent distress Eyes - PERRLA, EOMI. Red reflex in tact Nose- Septum midline Mouth/throat- moist mucosa. Tongue midline. No edema, erythema, tonsillitis Neck-supple. Trachea midline. Thyroid is symmetric without palpable nodules Cardiovascular - S1S2, RRR, No edema Respiratory - Normal lung expansion, Normal respiratory effort, No respiratory distress, CTA bilaterally Gastrointestinal - NT / ND; +BS; No rebound or guarding - No CVA tenderness Extremities - no calf tenderness bilaterally, no swelling Musculoskeletal - Normal inspection, normal ROM Skin - Warm/Dry Neurological - Alert & oriented x3, CN II-XII in tact, 5/5 strength BUE and BLE Psychological - Appropriate affect PFSH Medical History (Updated 07/14/24 @ 17:27 by OSMAN Fabian) Tubular adenoma Adverse reaction to COVID-19 vaccine Chronic low back pain History of esophageal stricture Dysphagia Polymyalgia rheumatica Acid reflux Surgical History (Updated 07/14/24 @ 17:27 by OSMAN Fabian) S/P balloon dilatation of esophageal stricture History of esophagogastroduodenoscopy (EGD) Hx of right knee surgery Hx of left knee surgery History of back surgery Hx of colonoscopy (~11/30/21) Family History Father Pancreatic cancer Mother Lung cancer Social History Household Members: None Alcohol intake: current Alcohol intake frequency: holidays/special occasions only Patient Tobacco Use Status: Never used Tobacco Physical exam (Primary Care) Vital Signs: Last Vital Signs Temp 97.9 F 07/14/24 16:50 Pulse 81 07/14/24 16:50 Resp 14 07/14/24 16:50 Pulse Ox 98 07/14/24 16:50 Oxygen Delivery Method Room Air 07/14/24 16:50 BMI result Body Mass Index 26.3 Tobacco/Smoking Status: Tobacco use Status Patient Tobacco Use Status Never used Tobacco 07/14/24 16:46 Coding Level of Care Code New Pt Level 4 (95836) Est Pt Prev Care 40-64y(50212) Diagnoses Routine medical exam Z00.00 PMR (polymyalgia rheumatica) M35.3 Screening for hypercholesterolemia Z13.220 Chronic low back pain M54.50; G89.29 Adverse reaction to COVID-19 vaccine T50.B95A Tubular adenoma D36.9 Assessment & Plan Assessment & Plan (1) Routine medical exam: Code(s): Z00.00 - Encounter for general adult medical examination without abnormal findings Category: Medical Plan: Patient in good overall state of health. VSS. Labs to be updated as ordered. C ontinue with healthy diet and exercise. Limit alcohol intake (2) PMR (polymyalgia rheumatica): Code(s): M35.3 - Polymyalgia rheumatica Category: Medical Plan: Continue following with the arthritis treatment center. Continue Kevzara injections. We will evaluate CBC for any neutropenia or thrombocytopenia. Given long-term corticosteroid use, will also evaluate hemoglobin A1c. (3) Screening for hypercholesterolemia: Code(s): Z13.220 - Encounter for screening for lipoid disorders Plan: Lipid panel ordered (4) Chronic low back pain: Code(s): M54.50 - Low back pain, unspecified; G89.29 - Other chronic pain Category: Medical Plan: MRI reviewed. Continue following with [facility] spine and sport and proceed with cortisone injection under fluoroscopy as scheduled. (5) Adverse reaction to COVID-19 vaccine: Code(s): T50.B95A - Adverse effect of other viral vaccines, initial encounter Category: Medical Plan: Continue following with the arthritis treatment center and continue with Kevzara. Recommend avoiding further COVID-19 vaccinations. (6) Tubular adenoma: Code(s): D36.9 - Benign neoplasm, unspecified site Category: Medical Plan: Repeat colonoscopies recommended every 1-2 years and is overdue. Advised to contact Gastroenterology to see if prior authorization can be sent to insurance company given their initial denial. Plan Follow-up in the office in 1 year for annual exam. Labs to be completed today. Orders: Orders Basic Metabolic Panel Today M35.3 - Polymyalgia rheumatica, Z00.00 - Encounter for general adult medical examination without abnormal findings Hemoglobin A1c Today M35.3 - Polymyalgia rheumatica, Z00.00 - Encounter for general adult medical examination without abnormal findings Prostate Specific Antigen Today M35.3 - Polymyalgia rheumatica, Z00.00 - Encounter for general adult medical examination without abnormal findings Complete Blood Count Auto Diff Today M35.3 - Polymyalgia rheumatica, Z00.00 - Encounter for general adult medical examination without abnormal findings Lipid Panel Today M35.3 - Polymyalgia rheumatica, Z00.00 - Encounter for general adult medical examination without abnormal findings Liver Panel Today M35.3 - Polymyalgia rheumatica, Z00.00 - Encounter for general adult medical examination without abnormal findings Medications: Refilled omeprazole 20 mg PO BID 180 caps 3RF
[2024-07-14 16:50] VITALS: PULSE 81; RESP 14; TEMP 36.6; O2SAT 98; BMI 26.3
== END ==
LOC: HO.HMCHD 16:48
PROVIDERS: PCP Physician Assistant; Visit Provider Physician Assistant
DX: Z00.00 Encounter for general adult medical examination without abnormal findings (principal); M35.3 Polymyalgia rheumatica; Z13.220 Encounter for screening for lipoid disorders; M54.50 Low back pain, unspecified; G89.29 Other chronic pain; T50.B95A Adverse effect of other viral vaccines, initial encounter; D36.9 Benign neoplasm, unspecified site

== ENCOUNTER 2024-12-02 10:45 | Day surgery (SDC) | payer OTHER, SELFPAY ==
--- OUTSIDE RECORDS SUMMARY | 2024-11-25 13:10 | XMS_ITS | Patient Health Record ---
Author Organization [facility] Address [address] [place] [address] Care Team Providers Care Project Development Coordinator Name Role Phone Jairo (RETIRED) Aorn GUSTAFSON Primary Care Provide r Unavailable Tee Chamberlain Unavailable [phone] Reason For Referral No Information Medications Medication SIG (Take, Route, Fr equency, Duration) Notes Start Date End Date Status Suprep Bowel Prep 1 kit as directed Oral ly as directed; Duration: 1 dose 01/30/2014 Activ e Omeprazole 20 MG 1 capsule Orally Onc e a day; Duration: 90 days 04/16/2014 Active Omeprazole 20mg Acti ve Social History Tobacco Use: Social History Observation Description Date Details (start date - stop date) Never Smoker NA - NA Tobacco Use/Smoking Question Answer Notes Patient is a nonsmoker Alcohol Screen Question Answer Notes Did you have a drink contain ing alcohol in the past year? Yes How often did you have a dri nk containing alcohol in the past year? 2 to 3 times a week (3 points) How many drinks did you have on a typical day when you were drinking in the past year? 1 or 2 drinks (0 point) How often did you have 6 or more drinks on one occasion in the past year? Never (0 point) Points 3 Interpretation Negative Section Notes: Nonsmoker; 5-6 beers 3-4x pe r week Nonsmoker; 5-6 beers 3-4x pe r week Nonsmoker; 5-6 beers 3-4x pe r week Problems Problem Type SNOMED Code ICD Code Onset Dates Problem Status W/U Status Risk Notes Problem Dysphagia (57935235) Dysphagia (787.20) Active confirmed Problem Colon cancer screening (474160809) Colon cancer screening (V76.51) Active confirmed Problem Gastroesophageal reflux disease (250906378) GERD (gastroesopha geal reflux disease) (530.81) Active confirmed Plan Of Treatment Future Test Test Name Order Date COLONOSCOPY 01/28/2014 Insurance Providers Payer Name Payer Address Payer Phone Subscriber Number Group Number Insured Name Patient Relationship to Insured Coverage Start Date Coverage End Date [facility] [address] [address] [place] [phone] [id number] TATE SAUL Self - patient is the insured Medical (General) History Medical History History ICD Code Denies DC,DM,CVA,Lung disease,renal dise ase GERD--he underwent an upper endoscopy in January 2013 with the finding of some mild reflux, a nonobstructing distal esophageal ring, and a small hiatal hernia-biopsies were negative for Griggs's esophagus and negative for eosinophilic esophagitis-the esophageal ring was dilated with an 18 mm balloon Surgical History Surgery Date(Month/Year) Hand-Dupuytren's contracture--Dr. Mehta 11/2012 left knee meniscus 2010 right knee meniscus 2006 back surgery L4-L5 x 2
--- NOTE | 2024-12-01 09:06 | P.CONAN_ITS ---
Documented by User: Caridad Do NP 12/01/24 09:06 HPI - Anesthesia Eval Consult details Narrative: 59yo M for Colonoscopy PMR - immunologics PMFSH Active Problems Active Problems: All Active Problems Routine medical exam (Acute) Sessile colonic polyp (Acute) Hemorrhoids (Acute) Diverticulosis of colon (Acute) Acid reflux (Acute) History of colon polyps (Acute) Dysphagia (Acute) PMR (polymyalgia rheumatica) (Acute) Tubular adenoma (Acute) Adverse reaction to COVID-19 vaccine (Acute) Chronic low back pain (Acute) Past Medical History Medical History (Updated 07/14/24 @ 17:27 by OSMAN Fabian) Tubular adenoma Adverse reaction to COVID-19 vaccine Chronic low back pain History of esophageal stricture Dysphagia Polymyalgia rheumatica Acid reflux Family History Family History Father Pancreatic cancer Mother Lung cancer Surgical History Surgical History (Updated 11/28/24 @ 13:45 by Mary Gamboa RN) S/P balloon dilatation of esophageal stricture History of esophagogastroduodenoscopy (EGD) Hx of right knee surgery Hx of left knee surgery History of back surgery Hx of colonoscopy (~11/30/21) History of Problems with Anesthesia: No Social History Social History Household Members: None Alcohol intake: current Alcohol intake frequency: holidays/special occasions only Patient Tobacco Use Status: Never used Tobacco Advance Directives: No Advance Directives Information Provided: Yes Meds Allergies Allergy/AdvReac Type Severity Reaction Status Date / Time No Known Allergies (No Known Allergy Verified 07/14/24 16:50 Allergies*) Home Medications ?Medication ?Instructions ?Recorded ?Confirmed ?Last Taken ?Type sarilumab 150 mg/1.14 mL 150 mg subcut Q3W 07/14/24 0 07/14/24 Unknown History subcutaneous pen injector (Kevzara) Exam Height,Weight and Vital Signs: Height 6 ft Assessment and Plan Assessment Anesthesia Assessment: Chart Reviewed Final Anesthetic Review History of Problems with Anesthesia: No Documented by User: J Carlos Kruse MD 12/02/24 11:08 [facility] Past Medical History Medical History (Updated 07/14/24 @ 17:27 by OSMAN Fabian) Tubular adenoma Adverse reaction to COVID-19 vaccine Chronic low back pain History of esophageal stricture Dysphagia Polymyalgia rheumatica Acid reflux Family History Family History Father Pancreatic cancer Mother Lung cancer Family history of problems with anesthesia: No Surgical History Surgical History (Updated 11/28/24 @ 13:45 by Mary Gamboa RN) S/P balloon dilatation of esophageal stricture History of esophagogastroduodenoscopy (EGD) Hx of right knee surgery Hx of left knee surgery History of back surgery Hx of colonoscopy (~11/30/21) Social History Social History Household Members: None Alcohol intake: current Alcohol intake frequency: holidays/special occasions only Patient Tobacco Use Status: Never used Tobacco Advance Directives: No Advance Directives Information Provided: Yes Meds Allergies Allergy/AdvReac Type Severity Reaction Status Date / Time No Known Allergies (No Known Allergy Verified 07/14/24 16:50 Allergies*) Home Medications ?Medication ?Instructions ?Recorded ?Confirmed ?Last Taken ?Type sarilumab 150 mg/1.14 mL 150 mg subcut Q3W 07/14/24 0 07/14/24 Unknown History subcutaneous pen injector (Kevzara) Exam Airway Mallampati Class: II TM Dist: <=3cm Neck ROM: Full Loose/Missing/Broken Teeth: No Heart: ok Lungs: ok Assessment and Plan Assessment Anesthesia Assessment: Anesthesia Plan Discussed Final Anesthetic Review Family History of Problems with Anesthesia: No NPO: Yes ASA Class: II Final Preanesthetic Review: No Changes in Pt Med Stat, Meds/Allgs Chart Reviewed, Consent Obtained/Reviewed and Anes Risks/Benef Reviewed Patient Risk: Intermediate Procedure Risk: Low Anesthetic Plan Anesthetic Plan: MAC: and Agree w/ Assess. and Plan Disposition: Standard PACU
[2024-12-01 15:53] VITALS: BMI 26.1
[2024-12-02 10:53] VITALS: BP 136/97; PULSE 79; RESP 18; TEMP 36.1; O2SAT 96; BMI 26.2
[2024-12-02] MEDS: Lactated Ringers 1,000 ML 100 ML IVCONT (11:13)
--- NOTE | 2024-12-02 11:25 | MHC.SHP ---
Pre-Procedural Eval Section A - 24 Hr Update-Section A only Date of Service: 12/02/24 Section B - Complete if H&P > 30 days Chief Complaint: colo polyps Relevant Family History (Specify if Yes): No Relevant Social History: None Present Medications: see Short Stay Collaborative assessment Medical History: Significant History ( Acid reflux Dysphagia Polymyalgia rheumatica) History of Previous Operations: Relevant previous surgery/procedure and date(s) ( History of back surgery History of esophagogastroduodenoscopy (EGD) Hx of colonoscopy Hx of left knee surgery Hx of right knee surgery) Allergies: Allergies Allergy/AdvReac Type Severity Reaction Status Date / Time No Known Allergies (No Known Allergy Verified 07/14/24 16:50 Allergies*) Review of Systems Sugical H&P ROS: Negative: Constitution, Cardiovascular, Respiratory, Neurological, Psychiatric, Hem-Onc, Allergic/Immunologic, Gastrointestinal, Genitourinary, Musculoskeletal, Integumentary, Endocrine and Eyes/Ears/Nose/Throat Exam Surgical H&P Exam: Normal: HEENT, Normal: Heart, Normal: Lungs, Normal: Extremities, Normal: Abdomen, Normal: Skin and Normal: Neurological Plan Diagnosis/Plan: Unchanged I have reviewed the history and physical and performed a pertinent physical examination on my patient. No changes have occurred unless specified. Time Spent With Patient Time: Total time managing care of this patient today ____ minutes.
--- NOTE | 2024-12-02 12:43 | HO.OPN-COLON ---
Colonoscopy Operative Note Operative Note Date of Service: 12/02/24 Narrative: Operative Information Procedure Description: Colonoscopy Indication: hx of colon polyps Anesthesia: MAC COLONOSCOPY Instrument: Olympus variable stiffness pediatric scope 190L Colonoscopy Monitoring: Vital signs and clinical assessment, continuous EKG monitoring, Pulse oximetry, Carbon Dioxide monitoring and blood pressure monitoring were done throughout the procedure. Colon withdrawal time was 13 minutes. Procedure: The patient was placed in the left lateral decubitis position and pre-procedure medications were administered. After a digital rectal examination of the ano-rectum, the video colonoscope was inserted into the rectum and advanced through the colon to the cecum/TI. The colonoscope was slowly withdrawn in a retrograde panoramic fashion and the colon mucosa was carefully examined including a retroflexed view of the rectum. Findings and interventions are described below. Procedure Difficulty: easy Findings: Terminal Ileum-normal Cecum:normal right sided retroflexion- normal Ascending Colon: normal Transverse Colon -normal Descending Colon:normal Sigmoid Colon: moderate diverticulosis Rectum: Retroflexion with small internal hemorrhoids seen, grade I Anorectum - normal Intervention: none Colon preparation: [place] Bowel Preparation Scale Right colon; 2 Transverse colon: 2 Left colon; 2 (0 = Unprepared colon segment with mucosa not seen due to solid stool that cannot be cleared. 1 = Portion of mucosa of the colon segment seen, but other areas of the colon segment not well seen due to staining, residual stool and/or opaque liquid. 2 = Minor amount of residual staining, small fragments of stool and/or opaque liquid, but mucosa of colon segment seen well. 3 = Entire mucosa of colon segment seen well with no residual staining, small fragments of stool or opaque liquid) Impression and Post Procedure Diagnosis: diverticulosis colon polyps internal hemorrhoids Plan: High fiber diet leaflet Avoid straining at stool, epsom salts and sitz bath, anusol supps or cream Repeat Colonoscopy in 3-4 years due to prior hx of polyps or earlier if clinically indicated Above findings were reviewed with the patient and relevant handouts were provided if indicated.
[2024-12-02 12:48] VITALS: BP 131/85; PULSE 71; RESP 16; TEMP 36.7; O2SAT 96
[2024-12-02 13:00] VITALS: BP 133/94; PULSE 58; RESP 16; TEMP 36.7; O2SAT 99
== END 2024-12-02 13:48 | disposition home or self-care (01) ==
PROVIDERS: PCP Physician Assistant; Visit Provider Internal Medicine Gastroenterology
PROC: 0DJD8ZZ Inspection of Lower Intestinal Tract, Via Natural or Artificial Opening Endoscopic (ICD-10-PCS; CPT 45378; principal; 2024-12-02 12:50)
DX: Z12.11 Encounter for screening for malignant neoplasm of colon (principal); Z86.0101 Personal history of adenomatous and serrated colon polyps; K57.30 Diverticulosis of large intestine without perforation or abscess without bleeding; K64.0 First degree hemorrhoids
CPT/HCPCS: 45378; J2003; J2704

== ENCOUNTER → 2024-12-02 10:45 | Outpatient (BNV) | payer OTHER, SELFPAY | PROVIDERS: PCP Physician Assistant; Visit Provider Internal Medicine Gastroenterology | DX: Z12.11 Encounter for screening for malignant neoplasm of colon (principal); Z86.0100 Personal history of colon polyps, unspecified; K57.30 Diverticulosis of large intestine without perforation or abscess without bleeding; K64.0 First degree hemorrhoids | CPT/HCPCS: 45378 ==

== ENCOUNTER 2025-02-03 13:55 | Outpatient (AMB) | payer OTHER, SELFPAY ==
--- NOTE | 2025-02-03 13:56 | MHC.PC.OV ---
Vital Signs 02/03/25 13:58 Height 6 ft Weight 89.358 kg BMI 26.7 BP 146/84 H Blood Pressure Location Lt brachial Respiration 14 Pulse 66 Pulse Source Pulse Oximeter Temp 97.1 F Temp Source Temporal Artery Scan Pulse Oximetry (%) 99 Oxygen Delivery Method Room Air Intake Visit Reasons: Middle of back pain Document Photographer Required: No Accompanied by: Self / Same As Patient Allergies No Known Allergies (No Known Allergies*) Allergy (Verified 02/03/25 13:57) Medication List - Last Reconciled 02/03/25 by OSMAN Fabian cyclobenzaprine 10 mg PO TID PRN ibuprofen 600 mg PO Q8H PRN omeprazole 20 mg PO BID HPI HPI Comments History of Present Illness Details 1-year-old male with history of GERD, tubular adenoma x4, polymyalgia rheumatica presents to the office today for annual physical exam and for management of chronic conditions. He is exercising regularly and follows a healthy diet. GERD-continues on omeprazole 20 mg b.i.d.. Avoid triggering food items. S/p balloon dilation 2015 due to esophageal stricture, no recurrence Polymyalgia rheumatica-following adverse reaction to COVID-19 vaccine. Following with arthritis treatment center. He was on chronic prednisone for 2 years. Was recently taken off Kevzara due to leukopenia Chronic low back pain with bilateral lower extremity radiculopathy-following with [facility] spine and sports. Received cortisone injection at L4-L5. No alarm symptoms Recent MRI: Degenerative and postoperative changes of the lumbar spine superimposed upon a congenitally-narrowed spinal canal. At L3-L4, a concentric disc-osteophyte complex asymmetric to the left moderate-severely narrows the left side of the spinal canal with expected compression of the left L4 nerve roots. At L4-L5, a left laminotomy defect is present. The left L4-L5 subarticular recess is severely narrowed with compression of the left L5 nerve roots. Now reporting pain along the right paraspinal area radiating into the right side. Reports a 3/10 discomfort when changing positions and 1 sleeping. He reports burning pain radiating down the back of the legs to the knees. Does not feel like his symptoms are improving. Reports he was given Valium in the past with good effect. Probable BPH with LUTS- reports symptoms of incomplete bladder emptying, some nocturia. However, not overly bothered by symptoms. ROS: General: No fevers, malaise, unintentional weight loss HEENT: No blurred vision, diplopia. No sore throat, nasal congestion, rhinorrhea, sinus pain, ear pain Cardiovascular: No chest pain, palpitations, or leg edema Respiratory: No shortness of breath, wheezing, cough GI: No abdominal pain, nausea, vomiting, diarrhea, constipation, melena, hematochezia : No dysuria, hematuria, increased urinary frequency, decreased urinary output MSK: No myalgia, back pain Neuro: No headaches, weakness, paresthesias Skin: No rashes or lesions EXAM: Constitutional - Awake and Alert, No apparent distress Eyes - PERRL Cardiovascular - S1S2, RRR, No edema Respiratory - Normal lung expansion, Normal respiratory effort, No respiratory distress, CTA bilaterally Extremities - no calf tenderness bilaterally, no swelling MSK -no midline tenderness to palpation. There is right-sided paraspinal tenderness at the level of about L1-L2 radiating into the right side. No CVA tenderness Skin - Warm/Dry Neurological - Alert & oriented x3, symmetric 1+ patellar pulses. senssation in tact. 5/5 strength ble Psychological - Appropriate affect PFSH Medical History (Updated 12/02/24 @ 11:14 by Minna Jorge, RN) Fracture of wrist Tubular adenoma Adverse reaction to COVID-19 vaccine Chronic low back pain History of esophageal stricture Dysphagia Polymyalgia rheumatica Acid reflux Surgical History (Updated 11/28/24 @ 13:45 by Mary Gamboa, DANIA) S/P balloon dilatation of esophageal stricture History of esophagogastroduodenoscopy (EGD) Hx of right knee surgery Hx of left knee surgery History of back surgery Hx of colonoscopy (~11/30/21) Family History Father Pancreatic cancer Mother Lung cancer Social History Household Members: None Alcohol intake: current Alcohol intake frequency: holidays/special occasions only Patient Tobacco Use Status: Never used Tobacco Physical exam (Primary Care) Vital Signs: Last Vital Signs Temp 97.1 F 02/03/25 13:58 Pulse 66 02/03/25 13:58 Resp 14 02/03/25 13:58 BP 146/84 H 02/03/25 13:58 Pulse Ox 99 02/03/25 13:58 Oxygen Delivery Method Room Air 02/03/25 13:58 BMI result Body Mass Index 26.7 Tobacco/Smoking Status: Tobacco use Status Patient Tobacco Use Status Never used Tobacco 02/03/25 14:01 Coding Level of Care Code Est Pt Level 4 (48939) Add On Problem Visit Only Diagnoses PMR (polymyalgia rheumatica) M35.3 Chronic low back pain M54.50; G89.29 Assessment & Plan Assessment & Plan (1) PMR (polymyalgia rheumatica): Code(s): M35.3 - Polymyalgia rheumatica Category: Medical Plan: Continue following with the arthritis treatment center. Given long-term corticosteroid use, will also evaluate hemoglobin A1c. We will also evaluate white blood cell count given recent leukopenia related to Kevzara (2) Chronic low back pain: Code(s): M54.50 - Low back pain, unspecified; G89.29 - Other chronic pain Category: Medical Plan: MRI reviewed. Continue following with [facility] spine and sport and proceed with cortisone injection under fluoroscopy as scheduled. Mild exacerbation with probable muscle strain. Recommend ibuprofen 600 mg every 8 hours as needed and also given prescription for cyclobenzaprine to use as needed. Advised that this along with other muscle relaxers can result in drowsiness. He can use topical analgesics as needed and is given exercises to perform at home. Follow-up with [place] if needed and can consider referral to physical therapy Orders: Orders Complete Blood Count Auto Diff Today Z00.00 - Encounter for general adult medical examination without abnormal findings Lipid Panel Today Z00.00 - Encounter for general adult medical examination without abnormal findings Prostate Specific Antigen Today Z00.00 - Encounter for general adult medical examination without abnormal findings Basic Metabolic Panel Today Z00.00 - Encounter for general adult medical examination without abnormal findings Liver Panel Today Z00.00 - Encounter for general adult medical examination without abnormal findings Hemoglobin A1c Today Z00.00 - Encounter for general adult medical examination without abnormal findings Medications: New ibuprofen 600 mg PO Q8H PRN 30 tabs 0RF pain cyclobenzaprine 10 mg PO TID PRN 30 tabs 0RF muscle spasm
[2025-02-03 13:58] VITALS: BP 146/84; PULSE 66; RESP 14; TEMP 36.2; O2SAT 99; BMI 26.7
--- OUTSIDE RECORDS SUMMARY | 2025-02-03 15:10 | XMS_ITS | Data Portability ---
Author Organization [place] [facility], Allergy Address [address] [place] [id number] Care Team Providers Care Recovery Agent Name Role Phone KIERA EGAN Primary Care Provider [phone] Assessment Encounter Date Assessment Date Assessment LastModified by Organization Details LastModified Time 08/08/2024 08/08/2024 1. Eustachian Tube Dysfunction Mr. Sands has issues with ear blockage during flights. To manage this, I suggested he uses white vinegar drops for ear hygiene and Afrin prior to flights. Use of Ear Planes and chewing gum during flights was discussed as a behavioral adjustment. Oxymetazoline/Afr in use suggested 2 sprays each nostril 1 to 2 hours prior to landing 2. Cerumen Impaction Due to the minimal ear wax detected, Mr. Sands will use 3 drops white vinegar solution twice a week for maintenance and prevention of impaction. 3. Snoring with Possible Sleep Apnea He reports snoring and large tongue size, indicating possible sleep apnea. I advised considering a repeat sleep study due to potential cardiovascular risks and suggested limiting alcohol for symptom management. He is not interested at present time Procedure Documentation: - Examination of ear for cerumen: Minimal wax presence confirmed - Evaluation for ear blockage and nasal assessment [email or web address] Not available 08/08/2024 10:29:48 Plan of Treatment Reminders Order Date Submit Date Provider Last Modified By Organization Details Last Modified Time Details Appointments Establish ed 15 2025 03:00P M TEMI LOVING PA-C Not available Not available Not available Lab None recorded. Referral None recorded. Procedures None recorded. Surgeries None recorded. Imaging None recorded. Medication Orders None recorded. Patient TargetsNo targets recorded. Patient Instructions Encounter Date Encounter Id Patient Instructions Last Modified By Organization Details Last Modified Time 08/08/2024 [id number] Please note: Parts of this encounter note have been generated by AI based on audio conversation. Patient consent was required prior to utilizing this technology. Content review was required prior to finalizing the note. [email or web address] Not available 08/08/2024 10:27:38 Reason for Referral None Reported. Results Created Date Observation Date Name Description Value Unit Range Abnormal Flag Note LastModifiedBy Organization Detail LastModifiedTime 08/09/19 25 audio gram No observ ation record ed. BARCODE Not Available 2024 10:35:44 Result Notes None recorded. Problems Name Problem SNOMED Code Status Onset Date Resolution Date Notes Provider Name and Address Organization Details Recorded Time Impacted cerumen of bilateral ears 83583253175 40203 Active 2018 Impacted cerumen, bilateral ; Note: Date Diagnosed : 11/18/2018 1:58 PM (H61.23) JOHNIE WEBB MD [address] [facility],[place] [address], [place], [phone] , [facility] - [facility] 5 10:25:27 Deviated nasal septum 636122580 Active 2018 Deviated nasal septum; Note: Date Diagnosed : 11/18/2018 2:06 PM (J34.2) Not Available [facility] 4 03:04:22 Sensorine ural hearing loss of bilateral ears 983109099 Active 2024 SULTANA SR, BETO [address] [facility],[place] [address], [place], [address] , [facility] - [facility] 5 10:03:52 Otitic barotraum a 08973174 Active 2024 JOHNIE WEBB MD [address] [facility] [address], [address] , [place] - [facility] 5 10:27:26 Dysfuncti on of bilateral eustachia n tubes 71693992321 34004 Active 2024 JOHNIE WEBB MD [address] [facility] [address], [place], [address] , [place] [facility] [place] 10:27:36 Snoring 80463741 Active 2024 JOHNIE WEBB MD [address] [place] [address], [place], [address] , [place] - [facility] 10:29:52 Problem Notes None recorded. Procedures Surgical History Date Name Laterality Status Provider Name and Address Organization Details Recorded Time 08/09/19 Comp Audio with Tymps - 86998 & 02021 completed BETO WONG [address] [facility],[place] [address], [place], [address], [place] - [facility] 08/08/2024 10:03:45 arthroscopy of knee with meniscus repair completed Sylvia Zuniga [place] - [facility] 08/08/2024 10:05:11 Imaging Results None recorded. Procedure Notes None recorded. Medical Equipment None Reported. Allergies No known drug allergies Medications Name Sig Start Date Stop Date Status Note LastModified by Organization Details LastModified Time tramadol 50 mg tablet TAKE 1 TABLET BY MOUTH TWICE DAILY NEEDED 08/08 completed Not Available Not Available Not Available econazole nitrate 1 % topical cream APPLY TOPICALLY TO FEET TWICE DAILY FOR UP TO 8 WEEKS NEEDED FOR RASH 08/08 completed Not Available Not Available Not Available omeprazole 20 mg capsule,del ayed release TAKE 1 CAPSULE BY MOUTH TWICE DAILY active Not Available Not Available No t Available Kevzara 150 mg/1.14 mL subcutaneou s pen injector Inject by subcutane ous route. active Not Available Not Available No t Available Vitals Date Recorded Body height Body weight Provider Name and Address Organization Details Last Updated DateTime 08/08/2024 182.88 cm 01284.92 g Sylvia Zuniga [place] [facility] 08/08/2024 10:10:53 Social History None recorded. Functional Status None recorded. Mental Status None recorded. Family History Nothing Reported. Medical History Condition Response Arthritis Y GERD/Reflux Y Past Encounters Encounter ID Performer Location Encounter Start Date Encounter Closed Date Diagnosis/Indication Diagnosis SNOMED-CT Code Diagnosis ICD10 Code Diagnosis IMO Codes Diagnosis Note [id number] JOHNIE WEBB MD [facility] [address] [place] [address] 08/08/2024 09:30:45 08/08/2024 10:27:47 Sensorineural hearing loss of bilateral ears [id number] H90.3 [id number] Audiologic al evaluation results: Right ear: Normal sloping to a moderate sensorineu ral hearing loss with excellent word recognitio n. Left ear: Normal sloping to a mild sensorineu ral hearing loss with excellent word recognitio n. Tympanomet ry: Right Ear:Type A Left Ear:Type A Impacted c erumen of bilateral ears 4009668717 777079 H61.23 001672 Suggested 3 drops distilled vinegar in each ear twice weekly to prevent the buildup of cerumen Otitic barotrauma 532968 04 T70.0XXA 498630 Dysfunctio n of bilateral eustachian tubes 5915415167 594896 H69.93 47252192 Snoring 40679194 R06.83 33861 Health Concerns Section Related Observation LastModified by Organization Detai ls LastModified Time None Recorded Concern Status LastModified by Organization Details LastModified Time None Recorded Advance Directives Directive None Recorded Payers Insurance Date Sequence Insurance Name Policy Number Policy Miller Covered Member ID Miller Member ID Guarantor Name 08/08/[address] [place] [address] [id number] Shawn Sands [id number] Shawn Sands Notes Date Note Type Note Provider Name and Address Organization Details Recorded Time 08/08/2024 text/html The patient is a 59 year old male presenting with ear blockage. He experiences Eustachian tube dysfunction during frequent flights, leading to ear plugging, for which Ear Planes and partial gum usage have provided some relief. Previously, vinegar drops were recommended to manage ear wax buildup. In addition, the patient reports past and ongoing issues with snoring, with occasional apnea-related symptoms. His previous evaluation indicated borderline results for likely sleep apnea, and alcohol intake has been noted to potentially worsen these symptoms. JOHNIE CLEMENTS MD [address] [place] [address], [phone], [facility] - [facility] 08/08/2024 10:30:04
--- OUTSIDE RECORDS SUMMARY | 2025-02-03 15:10 | XMS_ITS | Patient Health Record ---
Author Organization [facility] Address [address] [place] [address] Care Team Providers Care Last Trimmer Name Role Phone Jairo (RETIRED) Aron GUSTAFSON Primary Care Provide r Unavailable Tee Chamberlain Unavailable [phone] Reason For Referral No Information Medications Medication SIG (Take, Route, Frequency, Duration) Notes Start Date End Date Status Suprep Bowel Prep 1 kit Solution as directed Orally as directed; Duration: 1 dose 01/30/2014 Activ e Omeprazole 20 MG Capsule Delayed Release 1 capsule Orally Once a day; Duration: 90 days 04/16/2014 Active Omeprazole 20mg Acti ve Social History Social History Additional Details Category Social Info Options Details Miscellaneous: Marital status: single 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 Section Notes: Nonsmoker; 5-6 beers 3-4x pe r week Nonsmoker; 5-6 beers 3-4x pe r week Nonsmoker; 5-6 beers 3-4x pe r week Problems Problem Type SNOMED Code ICD Code Onset Dates Problem Status W/U Status Risk Notes Problem Dysphagia (21559250) Dysphagia (787.20) Active confirmed Problem Colon cancer screening (774945674) Colon cancer screening (V76.51) Active confirmed Problem Gastroesophageal reflux disease (498774189) GERD (gastroesopha geal reflux disease) (530.81) Active confirmed Plan Of Treatment Future Test Test Name Order Date COLONOSCOPY 01/28/2014 Insurance Providers Payer Name Payer Address Payer Phone Subscriber Number Group Number Insured Name Patient Relationship to Insured Coverage Start Date Coverage End Date [facility] [address] [place] [phone] [id number] TATE SAUL Self - patient is the insured Medical (General) History Medical History History ICD Code Denies [place],DM,CVA,Lung disease,renal dise ase GERD--he underwent an upper [...]
== END 2025-02-03 14:33 | disposition home or self-care (01) ==
LOC: HO.HMCHD 13:55
PROVIDERS: PCP Physician Assistant; Visit Provider Physician Assistant
DX: M35.3 Polymyalgia rheumatica (principal); M54.50 Low back pain, unspecified; G89.29 Other chronic pain

== ENCOUNTER 2025-02-03 13:55 | Outpatient (REF) | payer OTHER, SELFPAY ==
[2025-02-03 14:49] LABS: MANUAL DIFF FLAG NO
[2025-02-03 15:49] LABS: Hematocrit 41.2 % (42.0-52.0); Hemoglobin 13.9 g/dl (14.0-18.0); Imm Gran Abs Auto 0.01 X10*3/uL (0.00-0.03); Imm Gran Pct Auto 0.2 % (0.0-0.4); Lymphocytes Absolute Auto 0.8 X10*3/uL (1.2-4.9); Mean Corpuscular HGB Conc 33.7 g/dl (31.0-36.0); Mean Corpuscular Hemoglobin 31.3 pg (27.0-33.0); Mean Corpuscular Volume 92.8 fL (80.0-98.0); NRBC Abs Auto 0.000 X10*3/uL (0.0-0.012); NRBC Pct Auto 0.0 /100WBC (0.0-0.2); Platelet Count 192 X10*3/uL (160-400); Red Blood Count 4.44 X10*6/uL (4.60-5.80); White Blood Count 4.6 X10*3/uL (4.8-10.8)
[2025-02-03 16:13] LABS: Alanine Aminotransferase 24 U/L (0-40); Albumin Level 4.3 g/dL (3.5-5.0); Alkaline Phosphatase 63 U/L (39-117); Anion Gap 10 (12-20); Aspartate Amino Transferase 21 U/L (5-37); Blood Urea Nitrogen 14 mg/dL (9-16); Calcium 9.2 mg/dL (8.4-10.2); Carbon Dioxide 28 mmol/L (22-29); Chloride 110 mmol/L (96-108); Cholesterol 199 mg/dL (<200); Estimated Glomerular Filt Rate > 60; HDL Cholesterol 52 mg/dL (>40); Potassium 4.1 mmol/L (3.3-5.1); Sodium 144 mmol/L (135-145); Total Protein 6.4 g/dL (6.5-8.0); Triglycerides 89 mg/dL (<150)
[2025-02-03 16:36] LABS: Prostate Specific Antigen 4.82 ng/mL (<0.05-4.0)
== END 2025-02-03 13:56 | disposition home or self-care (01) ==
LOC: HO.LAB 13:55
PROVIDERS: PCP Physician Assistant; Visit Provider Physician Assistant
DX: Z00.00 Encounter for general adult medical examination without abnormal findings (principal); M35.3 Polymyalgia rheumatica; K21.9 Gastro-esophageal reflux disease without esophagitis; M54.50 Low back pain, unspecified; G89.29 Other chronic pain; Z13.1 Encounter for screening for diabetes mellitus; Z12.5 Encounter for screening for malignant neoplasm of prostate; Z79.899 Other long term (current) drug therapy
CPT/HCPCS: 36415; 80048; 80061; 80076; 83036; 84153; 85025